=== PATIENT | female | born 1985 | race Caucasian/White ===

== ENCOUNTER 2018-10-20 10:27 | Inpatient (IN) | payer OTHER ==
[2018-10-20] MEDS ORDERED: AMMONIA AROMATIC 1 EACH AMP IH ONE (11:19)
[2018-10-20] MEDS ORDERED: TERBUTALINE SULFATE 1 MG/ML VIAL ONE (11:19)
[2018-10-20] MEDS ORDERED: OXYTOCIN 10 UNIT/ML VIAL ONE (11:19)
[2018-10-20] MEDS ORDERED: OLIVE OIL 118 ML BTL MISC ONE (11:19)
[2018-10-20] MEDS ORDERED: LIDOCAINE 1% 300 MG/30 ML SDV ONE (11:19)
[2018-10-20] MEDS ORDERED: MISOPROSTOL 200 MCG TAB ONE (11:20)
[2018-10-20] MEDS ORDERED: IBUPROFEN 600 MG TAB PO PRN (11:51)
[2018-10-20] MEDS ORDERED: OLIVE OIL 118 ML BTL MISC PRN (11:51)
[2018-10-20] MEDS ORDERED: LR 1,000 ML IV PRN (11:51)
[2018-10-20] MEDS ORDERED: EPSOM SALT 454 GM TP PRN (11:51)
[2018-10-20] MEDS ORDERED: OXYTOCIN/RINGERS LACTATE 1,000 ML IV PRN (11:51)
[2018-10-20] MEDS ORDERED: MISOPROSTOL 200 MCG TAB PR PRN (11:51)
[2018-10-20] MEDS ORDERED: LIDOCAINE 1% 300 MG/30 ML SDV SC PRN (11:51)
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
[2018-10-20 13:47] LABS: PLATELET COUNT 214 10^3/uL (150-400)
[2018-10-20] MEDS ORDERED: MISOPROSTOL 50 MCG CAP PO PRN (14:05)
--- NOTE | 2018-10-20 18:50 | OBPROG ---
Labor Progress Note Assessment/Plan: Assessment: 35 at 39 wk with PROM x 16 hours, in a regular contraction pattern, minimal cervical change. No evidence of chorioamnionitis. Plan: Will try the tub for now, then would like to consider Nitrous or Fentanyl for assistance with comfort. For now will observe since is in a great contraction pattern. If no change at next check, will recommend further intervention. Audrey Nichols MD, FACOG 10/20/18 18:47 Subjective/Intrapartum Course: 10/20/18 18:49 Pt becoming quite uncomfortable with contractions, breathing through them. Interested in pain control options soon. Still leaking clear fluid. Objective: 10/20/18 13:20 Patient ABO/Rh A POSITIVE 10/20/18 13:20 - SVE Dilation (cm): 1 Effacement (%): 90 Station: -3 Membranes: SROM Amniotic Fluid Color: Clear - Contraction Pattern Assessment Current Contraction Pattern: Regular - FHR Assessment Monroe FHR (bpm): 130 FHR Pattern Variability: Moderate FHR Category: 1 - AP Antepartum Course: 10/20/18 18:51 Pt presented to L&D after PROM at 0145 on 10/20/18. Cephalic presentation confirmed on US. Misoprostil started at 1430. 10/20/18 18:52 Oxytocin Orders Assessment - Pre-Induction/Augmentation Assessment Gestational Age: 39 week(s) and 0 day(s) ICD10 Worksheet Patient Problems: Problems Problem Status Onset PROM (premature rupture of membranes) Acute - ICD10 Problem Qualifiers (1) PROM (premature rupture of membranes) Qualifiers: PROM gestational age: full term
[2018-10-20] MEDS ORDERED: fentaNYL 100 MCG/2 ML INJ ONE (19:37)
[2018-10-20] MEDS ORDERED: fentaNYL 2MCG/ML/BUP 0.1% RTU 100 ML BAG EP ONE (19:37)
[2018-10-20] MEDS ORDERED: PHENYLEPHRINE HCL 100 MCG/ML SYR ONE (19:38)
[2018-10-20] MEDS ORDERED: PHENYLEPHRINE HCL 100 MCG/ML SYR IVP PRN (20:40)
[2018-10-20] MEDS ORDERED: ONDANSETRON 4 MG/2 ML VIAL IVP PRN (20:40)
[2018-10-20] MEDS ORDERED: NALOXONE HCL 0.4 MG/ML INJ IVP PRN (20:40)
[2018-10-20] MEDS ORDERED: METOCLOPRAMIDE 10 MG/2 ML VIAL IVP PRN (20:40)
--- NOTE | 2018-10-20 20:40 | PREANESOB ---
Obstetric Pre-Anesthesia Info - General Info : 2 Para: 0 SOLOMON: 10/27/18 Gestational Age: 39 week(s) and 0 day(s) - Info Monitors: External FHR Pattern: Reassuring - Labor Status Cervical Dilation per last OB SVE: 1 Station per last OB SVE: -3 Amniotic Fluid Color: Clear PIH: No Magnesium Sulfate in Use: No Indications for Labor Analgesia: Pain Control Labor Epidural: Yes Anesthesia Allergies/Adverse Reactions: Allergy/AdvReac Type Severity Reaction Status Date / Time No Known Allergies Allergy Unverified 10/20/18 11:50 Visit Medications: Generic Name Dose Route Start Last Admin Trade Name Freq PRN Reason Stop Dose Admin Lactated Ringer's 1,000 mls @ 0 mls/hr 10/20/18 11:51 Lr IV 10/21/18 11:50 PRN PRN SEE PROTOCOL CONDITIONS Protocol Per Protocol Oxytocin/Lactated Ringer's 1,000 mls @ 125 mls/hr 10/20/18 11:51 Pitocin 20 Units/Lr (Premix) IV PRN PRN Post bleeding Ibuprofen 600 mg 10/20/18 11:51 Motrin PO ONCE PRN post , pain Lidocaine HCl 300 mg 10/20/18 11:51 Lidocaine Hcl 1% SC 04/18/19 11:50 ONCE PRN episiotomy Magnesium Sulfate 454 gm 10/20/18 11:51 Epsom Salt TP 04/18/19 11:50 Q1H PRN perineal discomfort Misoprostol 800 - 1,000 mcg 10/20/18 11:51 Cytotec IL ONCE PRN Vaginal Atony/Bleeding Misoprostol 50 mcg 10/20/18 14:05 10/20/18 14:31 Cytotec PO 04/18/19 14:04 50 mcg Q4 PRN Administration other Jackson Oil 118 ml 10/20/18 11:51 Sweet Oil MISC 04/18/19 11:50 ONCE PRN perineal massage Discontinued Medications Generic Name Dose Route Start Last Admin Trade Name Freq PRN Reason Stop Dose Admin Ammonia (Aromatic Spirit) Confirm 10/20/18 11:19 Ammonia Aromatic Administered 10/20/18 11:20 Dose 1 each IH .STK-MED ONE Ephedrine Sulfate Confirm 10/20/18 19:37 Ephedrine Sulfate Administered 03/09/19 19:38 Dose 50 mg .ROUTE .STK-MED ONE Fentanyl Confirm 10/20/18 19:37 Sublimaze Administered 10/20/18 19:38 Dose 100 mcg .ROUTE .STK-MED ONE Fentanyl/Bupivacaine HCl Confirm 10/20/18 19:37 Fentanyl/Bupivacaine/Ns 2 Mcg/Ml 0.1% (Premix Administered 10/20/18 19:38 Dose 100 ml EP .STK-MED ONE Lidocaine HCl Confirm 10/20/18 11:19 Lidocaine Hcl 1% Administered 10/20/18 11:20 Dose 300 mg .ROUTE .STK-MED ONE Misoprostol Confirm 10/20/18 11:20 Cytotec Administered 10/20/18 11:21 Dose 1,000 mcg .ROUTE .STK-MED ONE Jackson Oil Confirm 10/20/18 11:19 Sweet Oil Administered 10/20/18 11:20 Dose 118 ml MISC .STK-MED ONE Oxytocin Confirm 10/20/18 11:19 Pitocin Administered 10/20/18 11:20 Dose 40 unit .ROUTE .STK-MED ONE Phenylephrine HCl Confirm 10/20/18 19:38 Neosynephrine Administered 10/20/18 19:39 Dose 1,000 mcg .ROUTE .STK-MED ONE Terbutaline Sulfate Confirm 10/20/18 11:19 Brethine Administered 10/20/18 11:20 Dose 1 mg .ROUTE .STK-MED ONE - Anesthesia History Response to Local Anesthetics: Normal Anesthesia & Operative History: Other (Specify) (No H/O Anesthesia) Family Anesthesia History: Negative - Vital Signs Height/Weight (Nursing): Height 162.56 cm Weight 74.389 kg Labs: 10/20/18 13:20 Patient ABO/Rh A POSITIVE 10/20/18 13:20 - Plan Consent Signed and on Chart: Yes Patient/Guardian Understands and Agrees to Plan: Yes
[2018-10-20] MEDS ORDERED: fentaNYL 2MCG/ML/BUP 0.1% RTU 100 ML EP SCH (21:00)
[2018-10-20] MEDS ORDERED: LR 500 ML IV PRN (21:00)
[2018-10-20] MEDS ORDERED: OXYTOCIN/RINGERS LACTATE 500 ML IV SCH (21:00)
[2018-10-20] MEDS ORDERED: LR 500 ML IV SCH (21:00)
--- NOTE | 2018-10-20 21:29 | OBPROG ---
Labor Progress Note Assessment/Plan: Assessment: 35 at 39 wk with PROM x 16 hours, in a regular contraction pattern, minimal cervical change. No evidence of chorioamnionitis. Plan: Will try the tub for now, then would like to consider Nitrous or Fentanyl for assistance with comfort. For now will observe since is in a great contraction pattern. If no change at next check, will recommend further intervention. Audrey Nichols MD, FACOG 10/20/18 18:47 A/P: 35 at 39wk with PROM x almost 19 hours, comfortable s/p epidural, now with contractions spaced out. Will start pitocin. B/R/A of pitocin discussed. EFW 7lb Audrey Nichols MD, FACOG 10/20/18 21:26 Subjective/Intrapartum Course: 10/20/18 18:49 Pt becoming quite uncomfortable with contractions, breathing through them. Interested in pain control options soon. Still leaking clear fluid. 10/20/18 21:29 Pt comfortable with epidural. Has been able to sleep after getting epidural. Objective: 10/20/18 13:20 Patient ABO/Rh A POSITIVE 10/20/18 13:20 Gen - pt resting comfortably, but easily aroused and conversing. SVE per MIAN Adams, at 2044 = 3/ 90 / -2 when urinary catheter placed. FHR -130 reactive toco q 2-5 min - SVE Dilation (cm): 3 Effacement (%): 100 Station: -2 Membranes: SROM Amniotic Fluid Color: Clear - Contraction Pattern Assessment Current Contraction Pattern: Regular - FHR Assessment Monroe FHR (bpm): 130 FHR Pattern Variability: Moderate FHR Category: 1 - AP Antepartum Course: 10/20/18 18:51 Pt presented to L&D after PROM at 0145 on 10/20/18. Cephalic presentation confirmed on US. Misoprostil started at 1430. 10/20/18 18:52 Oxytocin Orders Assessment - Pre-Induction/Augmentation Assessment Indication: PROM Presentation: Vertex Gestational Age: 39 week(s) and 0 day(s) Gestational Age Determined By: Ultrasound Estimated Weight: 2501-3400g Membrane Status: Ruptured Current Sterile Vaginal Exam (SVE): 3/100/-2 Current Contraction Pattern: Regular - Heart Rate Pattern Monroe FHR Baseline (bpm): 130 FHR Category: 1 FHR Pattern Variability: Moderate FHR Accelerations: Present - Caceres's Score Dilation: 3-4cm Effacement: 80+ Station: -2 Cervix: Medium Cervix Position: Mid Caceres Score Total: 8 - Induction/Augmentation Consent Risks/Benefits of Procedure Reviewed/Pt Agrees to Proceed: Yes ICD10 Worksheet Patient Problems: Problems Problem Status Onset PROM (premature rupture of membranes) Acute - ICD10 Problem Qualifiers (1) PROM (premature rupture of membranes) Qualifiers: PROM gestational age: full term
--- NOTE | 2018-10-21 03:51 | OBPROG ---
Labor Progress Note Assessment/Plan: Assessment: 35 at 39 wk with PROM x 16 hours, in a regular contraction pattern, minimal cervical change. No evidence of chorioamnionitis. Plan: Will try the tub for now, then would like to consider Nitrous or Fentanyl for assistance with comfort. For now will observe since is in a great contraction pattern. If no change at next check, will recommend further intervention. Audrey Nichols MD, FACOG 10/20/18 18:47 A/P: 35 at 39wk with PROM x almost 19 hours, comfortable s/p epidural, now with contractions spaced out. Will start pitocin. B/R/A of pitocin discussed. EFW 7lb Audrey Nichols MD, FACOG 10/20/18 21:26 A/P: 35 at 39w1d, PROM x just over 24 hours, pushing about 1.5 hours now. Good progress. FHR tracing reviewed. Variable decels with each contraction, moderate variability in between. Continue pushing - anticipate vaginal delivery. Audrey Nichols MD, FACOG 10/21/18 03:48 Subjective/Intrapartum Course: 10/20/18 18:49 Pt becoming quite uncomfortable with contractions, breathing through them. Interested in pain control options soon. Still leaking clear fluid. 10/20/18 21:29 Pt comfortable with epidural. Has been able to sleep after getting epidural. Objective: 10/20/18 13:20 Patient ABO/Rh A POSITIVE 10/20/18 13:20 - SVE Membranes: SROM Amniotic Fluid Color: Clear - Contraction Pattern Assessment Current Contraction Pattern: Regular - FHR Assessment Monroe FHR (bpm): 150 (variable decels with pushing) FHR Pattern Variability: Moderate FHR Category: 2 - AP Antepartum Course: 10/20/18 18:51 Pt presented to L&D after PROM at 0145 on 10/20/18. Cephalic presentation confirmed on US. Misoprostil started at 1430. 10/20/18 18:52 - Physical Exam Estimated Weight: 2501-3400g Oxytocin Orders Assessment - Pre-Induction/Augmentation Assessment Presentation: Vertex Gestational Age: 39 week(s) and 0 day(s) Estimated Weight: 2501-3400g ICD10 Worksheet Patient Problems: Problems Problem Status Onset PROM (premature rupture of membranes) Acute - ICD10 Problem Qualifiers (1) PROM (premature rupture of membranes) Qualifiers: PROM gestational age: full term
[2018-10-21] MEDS ORDERED: HYDROCORTISONE 0.5% CREAM TP PRN (06:05)
--- NOTE | 2018-10-21 06:11 | OBDEL ---
Info Type: Vaginal Presentation at Delivery: Vertex L&D Analgesia/Anesthesia Type: Epidural GBS+: No Intrapartum Medications: Generic Name Dose Route Start Last Admin Trade Name Freq PRN Reason Stop Dose Admin Lactated Ringer's 500 mls @ 0 mls/hr 10/20/18 21:00 10/20/18 21:29 Lr IV 04/18/19 20:59 500 mls CONT PALMIRA Administration As Directed Oxytocin/Lactated Ringer's 500 mls @ 0 mls/hr 10/20/18 21:00 10/20/18 21:28 Pitocin 30 Units/Lr (Premix) IV 04/18/19 20:59 500 mls CONT PALMIRA Administration Protocol Per Protocol Misoprostol 50 mcg 10/20/18 14:05 10/20/18 14:31 Cytotec PO 04/18/19 14:04 50 mcg Q4 PRN Administration other Discontinued Medications Generic Name Dose Route Start Last Admin Trade Name Freq PRN Reason Stop Dose Admin Ibuprofen 600 mg 10/20/18 11:51 10/21/18 06:07 Motrin PO 600 mg ONCE PRN Administration post , pain - Infant Care Provider Cylinder Steamer/RECORDAK OPERATOR: Geovanna Gaitan (called immediately after delivery) - Hospital Course Intrapartum: 10/20/18 18:49 Pt becoming quite uncomfortable with contractions, breathing through them. Interested in pain control options soon. Still leaking clear fluid. 10/20/18 21:29 Pt comfortable with epidural. Has been able to sleep after getting epidural. Indications for Delivery: SROM Vaginal Delivery - Delivery Provider Delivery Physician/CNM: Audrey Nichols - Labor and Delivery Onset of Contractions Date: 10/20/18 Onset of Contractions Time: 14:00 Onset of Contractions Type: Induced Rupture of Membranes Date: 10/20/18 Rupture of Membranes Time: 01:45 Rupture of Membranes Type: Spontaneous Amniotic Fluid Color: Clear Dilation Complete Date: 10/21/18 Dilation Complete Time: 01:25 Placenta Delivery Date: 10/21/18 Placenta Delivery Time: 05:36 Total Hours of Labor: 14 Laceration: 2nd Degree Repair: 3-0, Vicryl Vaginal Sponge Count Correct: Yes Vaginal Needle Count Correct: Yes Vaginal Sweep Performed: Yes EBL: 300 Delivery Events: Nuchal Cord (reduced on perineum), Shoulder Dystocia (1.5-2.0 min shoulder dystocia) Delivery Comment: One dose of misoprostil was given for cervical ripening at 1430. At 1830 she was kj eery 2-3 minute so no further augmentation at that time. Around 1999 she requested and an epidural was placed. Around 2129 her contractions had spaced out so pitocin augmentation was started. She progressed to complete dilation at 0125 and began pushing. She pushed for just under 3 hours (daylight savings time). Delivery of vertex at 0521, turtle sign noted and nuchal cord reduced on perineum. Bulb suctioned mouth on perineum. NO delivery with gentle traction on vertex, so Kavon maneuver was performed, no resolution of shoulder dystocia. MIAN Adams stepped on a stool and gave rotational suprapubic pressure under my direction while the patient was instructed to stop puhing. No resolution. I attempted delivery of the posterior arm but compound presentation made that challenging. I then inserted my hand against the back and was able to rotate the posterior shoulder forward, releasing the left anterior shoulder. Easy delivery of the body at 0523, to the maternal abdomen, for a total shoulder dystocia time of 1.5-2.0 minutes. Due to lack of tone, immediate cord clamping and cutting was performed and infant was taken to the warmer where rescusitation was performed and the RECORDAK OPERATOR was called. Cord gases and cord blood was obtained. A small second degree laceration was identified and repaired with 3.0 Vicryl. Biateral periurethral lacerations were superficial and hemostatic so no repair was indicated. The placenta delivered spontaneously, at 0536. EBL 300. A vaginal sweep was performed and sponge, lap, and needle counts were correct. Pt was left in the room in stable condition with RN. Infant was taken to the NICU by the RECORDAK OPERATOR and rn charge. Cord Gases: Cord Gases Cord Blood PCO2 61 mmHg (37-60) H 10/21/18 05:23 Cord Base Excess -8.2 mEq/L (-13.6--3.2) 10/21/18 05:23 Cord ABG pH 7.18 (7.10-7.37) 10/21/18 05:23 Cord VBG pH 7.29 (7.20-7.42) 10/21/18 05:23 - Medications Labor Augmentation/Induction Methods Used: Pitocin, Misoprostol Labor Augmentation/Induction Indication: Other (Specify) (PROM) Operative Report - Delivery Cord Gases: Cord Gases Cord Blood PCO2 61 mmHg (37-60) H 10/21/18 05:23 Cord Base Excess -8.2 mEq/L (-13.6--3.2) 10/21/18 05:23 Cord ABG pH 7.18 (7.10-7.37) 10/21/18 05:23 Cord VBG pH 7.29 (7.20-7.42) 10/21/18 05:23 Data SOLOMON: 10/27/18 Gestational Age: 39 week(s) and 1 day(s) Monroe Delivery Date: 10/21/18 Delivery Time: 05:23 ("Gonzalo") Sex of Infant: Male Score (1 Min): 6 Score (5 Min): 8 Shoulder Dystocia Time Head Delivered: 05:21 Time Body Delivered: 05:23 (1.5 - 2 min total) 1st Maneuver Attempted Maneuvers: Kavon 2nd Maneuver Attempted Maneuvers: Suprapubic Pressure 3rd Maneuver Attempted Maneuvers: Posterior Arm Release 4th Maneuver Attempted Maneuvers: Wood's Maneuver (resolution of dystocia) ICD10 Worksheet Patient Problems: Problems Problem Status Onset PROM (premature rupture of membranes) Acute Shoulder dystocia, delivered, current hospitalization Acute - ICD10 Problem Qualifiers (1) PROM (premature rupture of membranes) Qualifiers: PROM gestational age: full term (2) Shoulder dystocia, delivered, current hospitalization
--- NOTE | 2018-10-21 10:45 | SOAPPROG ---
SOAP Progress Note Assessment/Plan: Assessment: s/p and TWILA. pt. doing very well. no complaints Plan: continue current medical mgmt 10/21/18 10:43 Subjective: denies n/v, pruritus, sensory/motor deficits, difficulty urinating Objective: Vital Signs Temp Pulse Resp BP Pulse Ox 36.2 C 81 16 109/60 10/21/18 10:02 10/21/18 10:02 10/21/18 10:02 10/21/18 10:02 Laboratory Results 10/20/18 13:20 10/20/18 10/21/18 10/22/18 04:59 05:59 05:59 Output Total 300 Balance -300 Physical Exam - Physical Exam General Appearance: WD/WN, alert, no apparent distress Extremities: normal range of motion Neuro/Psych: no motor/sensory deficits ICD10 Worksheet Patient Problems: Problems Problem Status Onset PROM (premature rupture of membranes) Acute Shoulder dystocia, delivered, current hospitalization Acute
[2018-10-21] MEDS: IBUPROFEN 600 MG TAB PO PRN ×2 (12:19→17:54)
--- NOTE | 2018-10-21 12:30 | OBPP ---
Progress Note Assessment/Plan: Assessment: 33 y/o PPD #0 s/p with 2 min shoulder dystocia, mom and baby are both doing well. Plan: support and routine PPC. 10/21/18 12:29 Subjective/ Course: 10/21/18 12:27 Pt is doing well now. She is feeling a little overwhelmed and is trying to get the baby to latch. She reports overall body soreness, but she has been able to ambulate to the restroom and void. She has mod lochia and non n/v, light- headness or dizziness. Objective: 10/20/18 13:20 Patient ABO/Rh A POSITIVE 10/20/18 13:20 Temp Pulse Resp BP Pulse Ox 36.2 C 81 16 109/60 10/21/18 10:02 10/21/18 10:02 10/21/18 10:02 10/21/18 10:02 Uterine Position/Fundal Height: Umbilicus -2 Uterine Tone: Firm Physical Exam - Physical Exam General Appearance: alert, no apparent distress Neck: non-tender, full range of motion, supple Respiratory: chest non-tender, lungs clear, normal breath sounds Cardiac/Chest: regular rate, rhythm Abdomen: normal bowel sounds Extremities: swelling (no), Sully's sign (neg)
[2018-10-21] MEDS: ACETAMINOPHEN 500 MG TAB PO PRN (16:58)
[2018-10-21] MEDS: DOCUSATE SODIUM 100 MG CAP PO PRN (21:17)
[2018-10-22] MEDS: IBUPROFEN 600 MG TAB PO PRN ×4 (00:35→18:53)
[2018-10-22] MEDS: ACETAMINOPHEN 500 MG TAB PO PRN ×3 (05:16→20:20)
--- NOTE | 2018-10-22 11:46 | OBPP ---
Progress Note Assessment/Plan: Assessment: PPD1 s/p - complicated by 2 minutes shoulder dystocia. Doing well, routine advancements. Thinks she would like to go home tomorrow. By report baby has small pneumothorax, not on O2 though and doing great. Rh pos, Rubella immune. JM Subjective/ Course: 10/21/18 12:27 Pt is doing well now. She is feeling a little overwhelmed and is trying to get the baby to latch. She reports overall body soreness, but she has been able to ambulate to the restroom and void. She has mod lochia and non n/v, light- headness or dizziness. 10/22/18 20:04 Cassie was sleeping this morning when I came by - returned to see her again this afternoon. Doing well, pain controlled, BF going "much better" today. Objective: 10/22/18 05:45 Patient ABO/Rh A POSITIVE 10/20/18 13:20 Temp Pulse Resp BP Pulse Ox 36.2 C 82 16 111/72 97 10/21/18 20:00 10/21/18 20:00 10/21/18 20:00 10/21/18 20:00 10/21/18 20:00 Uterine Position/Fundal Height: Umbilicus -2 Uterine Tone: Firm
[2018-10-22] MEDS: FERRO-SEQUELS 65 MG TAB.ER PO SCH (12:41)
[2018-10-22] MEDS: DOCUSATE SODIUM 100 MG CAP PO PRN ×2 (12:42→20:20)
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
[2018-10-23] MEDS: IBUPROFEN 600 MG TAB PO PRN ×2 (00:29→10:10)
[2018-10-23 08:29] VITALS: BP 120/76
--- NOTE | 2018-10-23 09:25 | OBPP ---
Progress Note Assessment/Plan: Assessment: ppd# 2 s/p care in [facility] - walk in breast feeding thc and etoh use in Rh+/RI discharge instructions Plan: 10/23/18 09:22 Subjective/ Course: 10/21/18 12:27 Pt is doing well now. She is feeling a little overwhelmed and is trying to get the baby to latch. She reports overall body soreness, but she has been able to ambulate to the restroom and void. She has mod lochia and non n/v, light- headness or dizziness. 10/22/18 20:04 Cassie was sleeping this morning when I came by - returned to see her again this afternoon. Doing well, pain controlled, BF going "much better" today. 10/23/18 09:23 patient is doing well. pain is well controlled. normal lochia. working with . breast feeding is going well. denies headache and changes in vision. ambulating. baby discharged. discharge instructions and follow up instructions reviewed. feels safe to go home. Objective: 10/22/18 05:45 Patient ABO/Rh A POSITIVE 10/20/18 13:20 Temp Pulse Resp BP Pulse Ox 36.7 C 79 19 120/76 97 10/23/18 08:28 10/23/18 08:28 10/23/18 08:28 10/23/18 08:28 10/23/18 08:28 Physical Exam - Physical Exam Neck: non-tender, full range of motion Respiratory: chest non-tender, lungs clear, normal breath sounds Cardiac/Chest: normal peripheral pulses, regular rate, rhythm Abdomen: normal bowel sounds, non-tender, other (fundus firm and non tender) Extremities: normal range of motion, non-tender, normal inspection, normal capillary refill Skin: normal color, warm/dry Neuro/Psych: no motor/sensory deficits, alert, normal mood/affect, oriented x 3
--- NOTE | 2018-10-23 09:29 | OBGCSDC ---
General Delivery Information - General Info : 2 Para: 1 Abortions: 0 Type: Vaginal L&D Analgesia/Anesthesia Type: Epidural Admission Date: 10/20/18 Labs: Patient ABO/Rh A POSITIVE 10/20/18 13:20 Hct 30.1 % (38.0-47.0) L 10/22/18 05:45 - Hospital Course Antepartum: 10/20/18 18:51 Pt presented to L&D after PROM at 0145 on 10/20/18. Cephalic presentation confirmed on US. Misoprostil started at 1430. 10/20/18 18:52 Intrapartum: 10/20/18 18:49 Pt becoming quite uncomfortable with contractions, breathing through them. Interested in pain control options soon. Still leaking clear fluid. 10/20/18 21:29 Pt comfortable with epidural. Has been able to sleep after getting epidural. : 10/21/18 12:27 Pt is doing well now. She is feeling a little overwhelmed and is trying to get the baby to latch. She reports overall body soreness, but she has been able to ambulate to the restroom and void. She has mod lochia and non n/v, light- headness or dizziness. 10/22/18 20:04 Cassie was sleeping this morning when I came by - returned to see her again this afternoon. Doing well, pain controlled, BF going "much better" today. 10/23/18 09:23 patient is doing well. pain is well controlled. normal lochia. working with . breast feeding is going well. denies headache and changes in vision. ambulating. baby discharged. discharge instructions and follow up instructions reviewed. feels safe to go home. Vaginal - Delivery Provider Delivery Physician/CNM: Audrey Nichols - Diagnosis Labor: Induced Rupture of Membranes Type: Spontaneous Amniotic Fluid Color: Clear Laceration: 2nd Degree Repair: 3-0, Vicryl Delivery Events: Nuchal Cord (reduced on perineum), Shoulder Dystocia (1.5-2.0 min shoulder dystocia) - Delivery EBL: [address] [place] [address] SOLOMON: 10/27/18 Gestational Age: 39 week(s) and 3 day(s) [place] Delivery Date: 10/21/18 Delivery Time: 05:23 Sex of Infant: Male Weight (gm): 3264 g Score (1 Min): 6 Score (5 Min): 8 Discharge Information - Discharge Information Condition: Good Instruction/Follow Up: Four Weeks (post mood check), Six Weeks (post visit. )
[2018-10-23] MEDS: FERRO-SEQUELS 65 MG TAB.ER PO SCH (10:10)
[2018-10-23] MEDS: ACETAMINOPHEN 500 MG TAB PO PRN (10:15)
== END 2018-10-23 14:25 | disposition home or self-care (01) | DRG 807 ==
LOC: FLD 10:27 → OBSVTOIN 11:54 → FOB 10-21 10:21
PROVIDERS: ADMIT Hospitalist; ATTEND Hospitalist
PROC: 10E0XZZ Delivery of Products of Conception, External Approach (ICD-10-PCS; principal; 2018-10-21)
PROC: 0KQM0ZZ Repair Perineum Muscle, Open Approach (ICD-10-PCS; principal; 2018-10-21)
DX: O99.324 Drug use complicating childbirth (principal); Z37.0 Single live birth; Z3A.39 39 weeks gestation of pregnancy; O70.1 Second degree perineal laceration during delivery; O66.0 Obstructed labor due to shoulder dystocia; O69.82X0 Labor and delivery complicated by other cord entanglement, without compression, not applicable or unspecified
CPT/HCPCS: 80305; J2370; J2590; J3010; J3105